=== PATIENT | female | born 1995 | race Caucasian/White ===

== ENCOUNTER 2016-05-22 09:16 | Emergency (ER) | payer OTHER ==
[2016-05-22 10:21] LABS: CONTROL LINE HCG INT CTR LINE PRESENT
--- NOTE | 2016-05-22 11:00 | EDDOCDS ---
Physician Documentation [facility] Name: Kina Gauthier Age: 21 yrs Sex: Female : 1995 Arrival Date: 05/22/2016 Time: 09:16 Bed PR Private MD: HANH Perez Disposition: 05/22/16 10:48 Discharged to Home/Self Care. Impression: Acute cystitis, Acute upper respiratory infection, unspecified. - Condition is Stable. - Discharge Instructions: Upper Respiratory Infection, Adult, Urinary Tract Infection. - Prescriptions for Cipro 250 mg/5 mL Oral Suspension, Microcapsule Recon - take 10 milliliters by ORAL route every 12 hours for 3 days; 60 milliliter. Ibuprofen 600 mg Oral Tablet - take 1 tablet by ORAL route every 6 hours As needed take with food; 30 tablet. Fluticasone 50 mcg/actuation Nasal [place], Suspension - inhale 1 spray by INTRANASAL route 2 times per day; 1 bottle. - Medication Reconciliation, Local Pharmacy Hours, Family Work Release form. - Follow up: Emergency Department; When: As needed; Reason: Fever > 102F, Worsening of conditions. Follow up: HANH Perez; When: Call to arrange an appointment; Reason: To establish care. - Problem is new. - Symptoms are unchanged. Historical: - Allergies: Amoxicillin; SULFA (SULFONAMIDES); Codeine Sulfate; - Home Meds: 1. Flintstones Complete (iron) oral chew daily - PMHx: none; - PSHx: none; - Social history: Smoking status: Patient states was never smoker of tobacco. No barriers to communication noted, The patient speaks fluent Slovak, Speaks appropriately for age. - Family history: Not pertinent. - : The pt / caregiver states he / she is not on anticoagulants. Home medication list is obtained from the patient. - Exposure Risk Screening:: None identified. 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 11 in. (149.86 cm) (R); Pain 7/10; 10:53 BP 134 / 88; Pulse 60; Resp 16; Temp 97.2(O); Pulse Ox 99% on R/A; Pain 6/10; ar3 09:18 Body Mass Index 38.17 (85.73 kg, 149.86 cm) ct3 MDM: 09:48 HCG,Serum Qualitative Ordered. EDMS 09:49 Strep Screen, Nursing ordered. ar2 09:49 Obtain sample by nasopharyngeal swab ordered. ar2 09:50 UA Ordered. EDMS 09:50 Urine Culture Ordered. EDMS 09:50 -Influenza A&B Rapid Antigen - Nose Ordered. EDMS 10:02 GATS (NEGATIVE STREP SCREEN) Ordered. EDMS 10:37 Financial registration complete. lg 10:40 UA Reviewed. ar2 10:40 HCG,Serum Qualitative Reviewed. ar2 10:40 -Influenza A&B Rapid Antigen - Nose Reviewed. ar2 10:53 [facility] Payment Agreement was scanned into [employer] and attached to record. lg Point of Care Testing: Urine : 10:02 hCG Reading: Negative; Control Reading: Positive; kr3 Ranges: Signatures: Dispatcher [employer] EDMS Yas Ravi, Reg Reg lg Shona Brito,RN RN kr3 Tereso Esparza PA-C PA-C ar2 The chart was reviewed and I authenticate all verbal orders and agree with the evaluation and treatment provided.Attachments: 10:53 [facility] Payment Agreement lg MTDD
--- NOTE | 2016-05-22 11:02 | EDDOCDS ---
Nurse's Notes [facility] Name: Kina Gauthier Age: 21 yrs Sex: Female : 1995 Arrival Date: 05/22/2016 Time: 09:16 Bed PR2 / Private MD: HANH Perez Diagnosis: Acute cystitis;Acute upper respiratory infection, unspecified Presentation: 05/22 09:20 Presenting complaint: Patient states: sinus congestion, frequent urination and stomach kr3 cramps. Symptoms for several weeks for sinus congestion. stomach cramps for several days. Risk factors: the patient reports a small or scant amount of vaginal bleeding. Adult Sepsis Screening: The patient does not have new or worsening altered mentation. Patient's respiratory rate is less than 22. Systolic blood pressure is greater than 100. Patient has a qSOFA score of 0- Negative Sepsis Screen. Suicide/Homicide risk assessment- the patient denies having any suicidal and/or homicidal ideations and does not present with any other emotional, behavioral or mental health complaints. Status: Patient is not a inpatient services rn or dependent. Transition of care: patient was not received from another setting of care. 09:20 Acuity: MARIO Level 3 kr3 09:20 Method Of Arrival: Walkin/Carried/Asstd kr3 Triage Assessment: 09:23 General: Appears in no apparent distress, comfortable, Behavior is cooperative. Pain: kr3 Location: right upper quadrant and left upper quadrant Pain currently is 7 out of 10 on a pain scale. Pt Declines HIV testing. Neurological: Level of Consciousness is awake, alert. EENT: Reports nasal congestion. GI: Reports upper abd pain, nausea. : Reports vaginal bleeding that is spotty. : Reports urinary frequency. 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 Flintstones Complete (iron) oral chew daily - PMHx: none; - PSHx: none; - Social history: Smoking status: Patient states was never smoker of tobacco. No barriers to communication noted, The patient speaks fluent [place], Speaks appropriately for age. - Family history: Not pertinent. - : The pt / caregiver states he / she is not on anticoagulants. Home medication list is obtained from the patient. - Exposure Risk Screening:: None identified. Screenin:41 Screening information is obtained from the patient. Fall risk: No risks identified. kr3 Assistance ADL's: requires no assistance with activities of daily living. Abuse/DV Screen: The patient / caregiver reports he/she is: not in a situation that causes fear, pain or injury. Nutritional screening: No deficits noted. Advance Directives: Currently, there is no health care proxy. home support is adequate. Assessment: 10:02 Reassessment: Patient appears in no apparent distress at this time. Neurological: No kr3 deficits noted. Respiratory: Respiratory effort is even, unlabored. GI: Abdomen is obese, deferred to provider Abd is soft and non tender. 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 Vital Signs: 09:18 BP 114 / 81; Pulse 71; Resp 18; Temp 97.3(O); Pulse Ox 100% on R/A; Weight 85.73 kg ct3 (R); Height 4 ft. 11 in. (149.86 cm) (R); Pain 7/10; 10:53 BP 134 / 88; Pulse 60; Resp 16; Temp 97.2(O); Pulse Ox 99% on R/A; Pain 6/10; ar3 09:18 Body Mass Index 38.17 (85.73 kg, 149.86 cm) ct3 Vitals: 09:18 Log In Time: May 22, 2016 at 09:15. ct3 10:02 Strep Screen is obtained and tested: Negative, a GATSNEG culture is ordered in [facility] kr3 and sent. ED Course: 09:18 Patient visited by Rachel Oconnell PCA. ct3 09:18 Chris [facility] [place] [facility] is Private Physician. ct3 09:18 Patient moved to Waiting ct3 09:19 Patient moved to Pre RCE ct3 09:22 Patient moved to Triage 2 srm 09:22 Triage Initiated kr3 09:25 Tereso Esparza PA-C is PHCP. ar2 09:25 Ronni Smith MD is Attending Physician. ar2 09:25 Patient visited by Tereso Esparza PA-C. ar2 10:01 -Influenza A&B Rapid Antigen - Nose Sent. kr3 10:02 Urine Culture Sent. kr3 10:02 UA Sent. kr3 10:02 HCG,Serum Qualitative Sent. kr3 10:03 The patient / caregiver is instructed regarding the plan of care and ED course. kr3 Accompanied by Family Member, Patient has correct armband on for positive identification. 10:03 Patient moved to TR1 kr3 10:03 GATS (NEGATIVE STREP SCREEN) Sent. kr3 10:39 Patient moved to PR1 / srm 10:40 Patient moved to PR srm 10:47 Chris [facility] [place] is Referral Physician. ar2 10:52 Patient name changed from Kina\S\\S\Disha\S\ to Kina\S\Bess\S\Disha. EDMS 10:53 [facility] Payment Agreement was scanned into [email or web address] and attached to record. lg 10:59 No IV's were initiated during this patient's visit. No procedures done that require kr3 assistance. Point of Care Testing: Urine : 10:02 hCG Reading: Negative; Control Reading: Positive; kr3 Ranges: Order Results: Lab Order: HCG,Serum Qualitative; SPEC'M 05/22/16 09:56 Test: HCG, SERUM QUALITATIVE; Value: NEGATIVE; Range: NEGATIVE; Status: F Lab Order: UA; SPEC'M 05/22/16 09:56 Test: APPEARANCE, URINE; Value: HAZY; Range: CLEAR; Status: F Test: COLOR, URINE; Value: YELLOW; Range: YELLOW; Status: F Test: PH,URINE; Value: 6.0; Range: 5.0-9.0; Units: UNITS; Status: F Test: SPECIFIC GRAVITY URINE AUTO; Value: 1.019; Range: 1.002-1.035; Status: F Test: PROTEIN, URINE AUTO; Value: NEGATIVE; Range: NEGATIVE; Units: mg/dL; Status: F Test: GLUCOSE, URINE (UA) AUTO; Value: NEGATIVE; Range: NEGATIVE; Units: mg/dL; Status: F Test: KETONE, URINE AUTO; Value: NEGATIVE; Range: NEGATIVE; Units: mg/dL; Status: F Test: UROBILINOGEN, URINE AUTO; Value: 0.2; Range: 0.0-2.0; Units: mg/dL; Status: F Test: BILIRUBIN, URINE AUTO; Value: NEGATIVE; Range: NEGATIVE; Status: F Test: NITRITE, URINE AUTO; Value: NEGATIVE; Range: NEGATIVE; Status: F Test: LEUKOCYTE ESTERASE, URINE AUTO; Value: 3+; Range: NEGATIVE; Abnormal: Above high normal; Status: F Test: BLOOD, URINE BLOOD; Value: NEGATIVE; Range: NEGATIVE; Status: F Test: WBC, URINE AUTO; Value: 23; Range: 0-3; Abnormal: Above high normal; Units: /HPF; Status: F Test: RBC, URINE AUTO; Value: 3; Range: 0-3; Units: /HPF; Status: F Test: BACTERIA, URINE AUTO; Value: 1+; Range: NEGATIVE; Abnormal: Above high normal; Status: F Test: SQUAMOUS EPITHELIAL CELL UR AU; Value: 9; Range: 0-6; Units: /HPF; Status: F Test: MUCUS, URINE; Value: SMALL; Range: NEGATIVE; Status: F Test: HYALINE CAST, URINE AUTO; Value: 0; Range: 0-1; Units: /LPF; Status: F Lab Order: -Influenza A&B Rapid Antigen - Nose; SPEC'M 05/22/16 09:56 Test: INFLUENZA A RAPID SCR by ICA; Value: INFLUENZA A RESULTS NEGATIVE; Status: F Test: INFLUENZA A RAPID SCR by ICA; Value: Comments:; Status: F Test: INFLUENZA B RAPID SCR by ICA; Value: INFLUENZA B RESULTS NEGATIVE; Status: F Test Note: ; The Influenza test is a direct rapid immunoassay for the qualitative detection of Influenza viral antigen. Cell culture (Viral Culture) testing should be considered to confirm NEGATIVE results and to assist in detecting other viruses that can provide similar clinical symptoms. Please contact the lab within 24 hours ([phone]) if confirmatory testing is desired. Outcome: 10:48 Discharge ordered by Provider. ar2 10:58 Discharge Assessment: patient administered narcotics - no. The following High Risk kr3 Discharge criteria are identified: None. Discharged to home ambulatory, with family. Condition: stable. Discharge instructions given to patient, Instructed on discharge instructions, follow up and referral plans. medication usage, Demonstrated understanding of instructions, medications, Pt was receptive of discharge instructions/ teaching. Prescriptions given X 3. No special radiology studies were completed. Property sent home with patient. 10:59 Patient left the ED. kr3 Signatures: Dispatcher [employer] EDMS Radha Toscano, RN RN srm Yas Ravi, Reg Reg lg Shona Brito,RN RN kr3 Tereso Esparza, BALA PAJose ar2 Alana Wilson, INCOME TAX EXPERT INCOME TAX EXPERT ar3 Anish, Rachel, INCOME TAX EXPERT INCOME TAX EXPERT ct3 MTDD
--- NOTE | 2016-05-24 12:01 | EDDOCDS ---
Nurse's Notes [facility] Name: Kina Gauthier Age: 21 yrs Sex: Female : 1995 Arrival Date: 05/22/2016 Time: 09:16 Bed PR2 / Private MD: HANH Perez Diagnosis: Acute cystitis;Acute upper respiratory infection, unspecified Presentation: 05/22 09:20 Presenting complaint: Patient states: sinus congestion, frequent urination and stomach kr3 cramps. Symptoms for several weeks for sinus congestion. stomach cramps for several days. Risk factors: the patient reports a small or scant amount of vaginal bleeding. Adult Sepsis Screening: The patient does not have new or worsening altered mentation. Patient's respiratory rate is less than 22. Systolic blood pressure is greater than 100. Patient has a qSOFA score of 0- Negative Sepsis Screen. Suicide/Homicide risk assessment- the patient denies having any suicidal and/or homicidal ideations and does not present with any other emotional, behavioral or mental health complaints. Status: Patient is not a career services representative or dependent. Transition of care: patient was not received from another setting of care. 09:20 Acuity: MARIO Level 3 kr3 09:20 Method Of Arrival: Walkin/Carried/Asstd kr3 Triage Assessment: 09:23 General: Appears in no apparent distress, comfortable, Behavior is cooperative. Pain: kr3 Location: right upper quadrant and left upper quadrant Pain currently is 7 out of 10 on a pain scale. Pt Declines HIV testing. Neurological: Level of Consciousness is awake, alert. EENT: Reports nasal congestion. GI: Reports upper abd pain, nausea. : Reports vaginal bleeding that is spotty. : Reports urinary frequency. 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 Flintstones Complete (iron) oral chew daily - PMHx: none; - PSHx: none; - Social history: Smoking status: Patient states was never smoker of tobacco. No barriers to communication noted, The patient speaks fluent Nigerien, Speaks appropriately for age. - Family history: Not pertinent. - : The pt / caregiver states he / she is not on anticoagulants. Home medication list is obtained from the patient. - Exposure Risk Screening:: None identified. Screenin:41 Screening information is obtained from the patient. Fall risk: No risks identified. kr3 Assistance ADL's: requires no assistance with activities of daily living. Abuse/DV Screen: The patient / caregiver reports he/she is: not in a situation that causes fear, pain or injury. Nutritional screening: No deficits noted. Advance Directives: Currently, there is no health care proxy. home support is adequate. Assessment: 10:02 Reassessment: Patient appears in no apparent distress at this time. Neurological: No kr3 deficits noted. Respiratory: Respiratory effort is even, unlabored. GI: Abdomen is obese, deferred to provider Abd is soft and non tender. 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 Vital Signs: 09:18 BP 114 / 81; Pulse 71; Resp 18; Temp 97.3(O); Pulse Ox 100% on R/A; Weight 85.73 kg ct3 (R); Height 4 ft. 11 in. (149.86 cm) (R); Pain 7/10; 10:53 BP 134 / 88; Pulse 60; Resp 16; Temp 97.2(O); Pulse Ox 99% on R/A; Pain 6/10; ar3 09:18 Body Mass Index 38.17 (85.73 kg, 149.86 cm) ct3 Vitals: 09:18 Log In Time: May 22, 2016 at 09:15. ct3 10:02 Strep Screen is obtained and tested: Negative, a GATSNEG culture is ordered in [facility] kr3 and sent. ED Course: 09:18 Patient visited by Rachel Oconnell PCA. ct3 09:18 Chris [facility] is Private Physician. ct3 09:18 Patient moved to Waiting ct3 09:19 Patient moved to Pre RCE ct3 09:22 Patient moved to Triage 2 srm 09:22 Triage Initiated kr3 09:25 Tereso Esparza PA-C is PHCP. ar2 09:25 Ronni Smith MD is Attending Physician. ar2 09:25 Patient visited by Tereso Esparza PA-C. ar2 10:01 -Influenza A&B Rapid Antigen - Nose Sent. kr3 10:02 Urine Culture Sent. kr3 10:02 UA Sent. kr3 10:02 HCG,Serum Qualitative Sent. kr3 10:03 The patient / caregiver is instructed regarding the plan of care and ED course. kr3 Accompanied by Family Member, Patient has correct armband on for positive identification. 10:03 Patient moved to TR1 kr3 10:03 GATS (NEGATIVE STREP SCREEN) Sent. kr3 10:39 Patient moved to PR1 / srm 10:40 Patient moved to PR srm 10:47 Chris [facility] is Referral Physician. ar2 10:52 Patient name changed from Kina\S\\S\Disha\S\ to Kina\S\Bess\S\Disha. EDMS 10:53 [facility] Payment Agreement was scanned into [employer] and attached to record. lg 10:59 No IV's were initiated during this patient's visit. No procedures done that require kr3 assistance. 05/23 14:17 T-Sheet-- Draft Copy was scanned into [employer] and attached to record. gb Point of Care Testing: Urine : 05/22 10:02 hCG Reading: Negative; Control Reading: Positive; kr3 Ranges: Order Results: Lab Order: HCG,Serum Qualitative; SPEC'M 05/22/16 09:56 Test: HCG, SERUM QUALITATIVE; Value: NEGATIVE; Range: NEGATIVE; Status: F Lab Order: UA; SPEC'M 05/22/16 09:56 Test: APPEARANCE, URINE; Value: HAZY; Range: CLEAR; Status: F Test: COLOR, URINE; Value: YELLOW; Range: YELLOW; Status: F Test: PH,URINE; Value: 6.0; Range: 5.0-9.0; Units: UNITS; Status: F Test: SPECIFIC GRAVITY URINE AUTO; Value: 1.019; Range: 1.002-1.035; Status: F Test: PROTEIN, URINE AUTO; Value: NEGATIVE; Range: NEGATIVE; Units: mg/dL; Status: F Test: GLUCOSE, URINE (UA) AUTO; Value: NEGATIVE; Range: NEGATIVE; Units: mg/dL; Status: F Test: KETONE, URINE AUTO; Value: NEGATIVE; Range: NEGATIVE; Units: mg/dL; Status: F Test: UROBILINOGEN, URINE AUTO; Value: 0.2; Range: 0.0-2.0; Units: mg/dL; Status: F Test: BILIRUBIN, URINE AUTO; Value: NEGATIVE; Range: NEGATIVE; Status: F Test: NITRITE, URINE AUTO; Value: NEGATIVE; Range: NEGATIVE; Status: F Test: LEUKOCYTE ESTERASE, URINE AUTO; Value: 3+; Range: NEGATIVE; Abnormal: Above high normal; Status: F Test: BLOOD, URINE BLOOD; Value: NEGATIVE; Range: NEGATIVE; Status: F Test: WBC, URINE AUTO; Value: 23; Range: 0-3; Abnormal: Above high normal; Units: /HPF; Status: F Test: RBC, URINE AUTO; Value: 3; Range: 0-3; Units: /HPF; Status: F Test: BACTERIA, URINE AUTO; Value: 1+; Range: NEGATIVE; Abnormal: Above high normal; Status: F Test: SQUAMOUS EPITHELIAL CELL UR AU; Value: 9; Range: 0-6; Units: /HPF; Status: F Test: MUCUS, URINE; Value: SMALL; Range: NEGATIVE; Status: F Test: HYALINE CAST, URINE AUTO; Value: 0; Range: 0-1; Units: /LPF; Status: F Lab Order: Urine Culture; SPEC'M 05/22/16 09:56 Test: URINE CULTURE; Value: <EXTERNAL COMMENT eCWMed> FULL REPORT IN LAB NOTES (eCW and Medent).; Status: F Test: URINE CULTURE; Value: URINE CULTURE RESULT SPECIMEN APPEARS CONTAMINATED; Status: F Lab Order: -Influenza A&B Rapid Antigen - Nose; SPEC'M 05/22/16 09:56 Test: INFLUENZA A RAPID SCR by ICA; Value: INFLUENZA A RESULTS NEGATIVE; Status: F Test: INFLUENZA A RAPID SCR by ICA; Value: Comments:; Status: F Test: INFLUENZA B RAPID SCR by ICA; Value: INFLUENZA B RESULTS NEGATIVE; Status: F Test Note: ; The Influenza test is a direct rapid immunoassay for the qualitative detection of Influenza viral antigen. Cell culture (Viral Culture) testing should be considered to confirm NEGATIVE results and to assist in detecting other viruses that can provide similar clinical symptoms. Please contact the lab within 24 hours ([phone]) if confirmatory testing is desired. Lab Order: GATS (NEGATIVE STREP SCREEN); SPEC'M 05/22/16 09:56 Test: GATS CULTURE (NEG STREP SCR); Value: GATS RESULT NEGATIVE FOR STREP PYOGENES (GROUP A); Status: F Test: GATS CULTURE (NEG STREP SCR); Value: <EXTERNAL COMMENT eCWMed> FULL REPORT IN LAB NOTES (eCW and Medent).; Status: F Outcome: 10:48 Discharge ordered by Provider. ar2 10:58 Discharge Assessment: patient administered narcotics - no. The following High Risk kr3 Discharge criteria are identified: None. Discharged to home ambulatory, with family. Condition: stable. Discharge instructions given to patient, Instructed on discharge instructions, follow up and referral plans. medication usage, Demonstrated understanding of instructions, medications, Pt was receptive of discharge instructions/ teaching. Prescriptions given X 3. No special radiology studies were completed. Property sent home with patient. 10:59 Patient left the ED. kr3 Signatures: Dispatcher [employer] EDMS Radha Toscano, RN RN srm Arianna Banda, Reg Reg gb Yas Ravi, Reg Reg lg Shona Brito RN RN kr3 Tereso Esparza PA-C PA-C ar2 Alana Wilson, INSPECTOR MACHINED PARTS INSPECTOR MACHINED PARTS ar3 Rachel Oconnell, INSPECTOR MACHINED PARTS INSPECTOR MACHINED PARTS ct3 Chart Complete MTDD
--- NOTE | 2016-05-24 12:01 | EDDOCDS ---
Physician Documentation [facility] Name: Kina Gauthier Age: 21 yrs Sex: Female : 1995 Arrival Date: 05/22/2016 Time: 09:16 Bed PR Private MD: HANH Perez Disposition: 05/22/16 10:48 Discharged to Home/Self Care. Impression: Acute cystitis, Acute upper respiratory infection, unspecified. - Condition is Stable. - Discharge Instructions: Upper Respiratory Infection, Adult, Urinary Tract Infection. - Prescriptions for Cipro 250 mg/5 mL Oral Suspension, Microcapsule Recon - take 10 milliliters by ORAL route every 12 hours for 3 days; 60 milliliter. Ibuprofen 600 mg Oral Tablet - take 1 tablet by ORAL route every 6 hours As needed take with food; 30 tablet. Fluticasone 50 mcg/actuation Nasal [place], Suspension - inhale 1 spray by INTRANASAL route 2 times per day; 1 bottle. - Medication Reconciliation, Local Pharmacy Hours, Family Work Release form. - Follow up: Emergency Department; When: As needed; Reason: Fever > 102F, Worsening of conditions. Follow up: HANH Perez; When: Call to arrange an appointment; Reason: To establish care. - Problem is new. - Symptoms are unchanged. Historical: - Allergies: Amoxicillin; SULFA (SULFONAMIDES); Codeine Sulfate; - Home Meds: 1. Flintstones Complete (iron) oral chew daily - PMHx: none; - PSHx: none; - Social history: Smoking status: Patient states was never smoker of tobacco. No barriers to communication noted, The patient speaks fluent Peruvian, Speaks appropriately for age. - Family history: Not pertinent. - : The pt / caregiver states he / she is not on anticoagulants. Home medication list is obtained from the patient. - Exposure Risk Screening:: None identified. 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 11 in. (149.86 cm) (R); Pain 7/10; 10:53 BP 134 / 88; Pulse 60; Resp 16; Temp 97.2(O); Pulse Ox 99% on R/A; Pain 6/10; ar3 09:18 Body Mass Index 38.17 (85.73 kg, 149.86 cm) ct3 MDM: 09:48 HCG,Serum Qualitative Ordered. EDMS 09:49 Strep Screen, Nursing ordered. ar2 09:49 Obtain sample by nasopharyngeal swab ordered. ar2 09:50 UA Ordered. EDMS 09:50 Urine Culture Ordered. EDMS 09:50 -Influenza A&B Rapid Antigen - Nose Ordered. EDMS 10:02 GATS (NEGATIVE STREP SCREEN) Ordered. EDMS 10:37 Financial registration complete. lg 10:40 UA Reviewed. ar2 10:40 HCG,Serum Qualitative Reviewed. ar2 10:40 -Influenza A&B Rapid Antigen - Nose Reviewed. ar2 10:53 [facility] Payment Agreement was scanned into [employer] and attached to record. lg 05/23 14:17 T-Sheet-- Draft Copy was scanned into [employer] and attached to record. gb Point of Care Testing: Urine : 05/22 10:02 hCG Reading: Negative; Control Reading: Positive; kr3 Ranges: Signatures: Dispatcher [employer] EDArianna Mcdonnell, Reg Reg gb Yas Ravi, Reg Reg lg Shona Brito,RN RN kr3 Tereso Esparza, BALA PAJose ar2 The chart was reviewed and I authenticate all verbal orders and agree with the evaluation and treatment provided.Attachments: 10:53 [facility] Payment Agreement lg 05/23 14:17 T-Sheet-- Draft Copy gb Chart Complete MTDD
--- NOTE | 2016-05-24 12:01 | EDDOCDS ---
Physician Documentation Name: Kina Gauthier Age: 21 yrs Sex: Female : 1995 Arrival Date: 05/22/2016 Time: 09:16 Bed PR Private MD: HANH Perez Disposition: 05/22/16 10:48 Discharged to Home/Self Care. Impression: Acute cystitis, Acute upper respiratory infection, unspecified. - Condition is Stable. - Discharge Instructions: Upper Respiratory Infection, Adult, Urinary Tract Infection. - Prescriptions for Cipro 250 mg/5 mL Oral Suspension, Microcapsule Recon - take 10 milliliters by ORAL route every 12 hours for 3 days; 60 milliliter. Ibuprofen 600 mg Oral Tablet - take 1 tablet by ORAL route every 6 hours As needed take with food; 30 tablet. Fluticasone 50 mcg/actuation Nasal [place], Suspension - inhale 1 spray by INTRANASAL route 2 times per day; 1 bottle. - Medication Reconciliation, Local Pharmacy Hours, Family Work Release form. - Follow up: Emergency Department; When: As needed; Reason: Fever > 102F, Worsening of conditions. Follow up: HNAH Perez; When: Call to arrange an appointment; Reason: To establish care. - Problem is new. - Symptoms are unchanged. Historical: - Allergies: Amoxicillin; SULFA (SULFONAMIDES); Codeine Sulfate; - Home Meds: 1. Flintstones Complete (iron) oral chew daily - PMHx: none; - PSHx: none; - Social history: Smoking status: Patient states was never smoker of tobacco. No barriers to communication noted, The patient speaks fluent Ivorian, Speaks appropriately for age. - Family history: Not pertinent. - : The pt / caregiver states he / she is not on anticoagulants. Home medication list is obtained from the patient. - Exposure Risk Screening:: None identified. 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 11 in. (149.86 cm) (R); Pain 7/10; 10:53 BP 134 / 88; Pulse 60; Resp 16; Temp 97.2(O); Pulse Ox 99% on R/A; Pain 6/10; ar3 09:18 Body Mass Index 38.17 (85.73 kg, 149.86 cm) ct3 MDM: 09:48 HCG,Serum Qualitative Ordered. EDMS 09:49 Strep Screen, Nursing ordered. ar2 09:49 Obtain sample by nasopharyngeal swab ordered. ar2 09:50 UA Ordered. EDMS 09:50 Urine Culture Ordered. EDMS 09:50 -Influenza A&B Rapid Antigen - Nose Ordered. EDMS 10:02 GATS (NEGATIVE STREP SCREEN) Ordered. EDMS 10:37 Financial registration complete. lg 10:40 UA Reviewed. ar2 10:40 HCG,Serum Qualitative Reviewed. ar2 10:40 -Influenza A&B Rapid Antigen - Nose Reviewed. ar2 10:53 [facility] Payment Agreement was scanned into [employer] and attached to record. lg 05/23 14:17 T-Sheet-- Draft Copy was scanned into [employer] and attached to record. gb Point of Care Testing: Urine : 05/22 10:02 hCG Reading: Negative; Control Reading: Positive; kr3 Ranges: Signatures: Dispatcher MedHost EDArianna Mcdonnell, Reg Reg gb Yas Ravi, Reg Reg lg Shona Brito,RN RN kr3 Tereso Esparza, BALA PAJose ar2 The chart was reviewed and I authenticate all verbal orders and agree with the evaluation and treatment provided.Attachments: 10:53 [facility] Payment Agreement lg 05/23 14:17 T-Sheet-- Draft Copy gb Chart Complete MTDD
== END 2016-05-22 10:59 | disposition home or self-care (01) ==
LOC: M ED 09:16
DX: N30.00 Acute cystitis without hematuria (principal); J06.9 Acute upper respiratory infection, unspecified; Z88.0 Allergy status to penicillin; Z88.2 Allergy status to sulfonamides; Z88.5 Allergy status to narcotic agent

== ENCOUNTER 2016-05-29 12:03 | Emergency (ER) | payer OTHER ==
--- NOTE | 2016-05-29 14:49 | EDDOCDS ---
Nurse's Notes [facility] Name: Kina Gauthier Age: 21 yrs Sex: Female : 1995 Arrival Date: 05/29/2016 Time: 12:03 Bed Triage 1 Private MD: Emma Cox E Diagnosis: Urinary tract infection, site not specified Presentation: 05/29 12:12 Presenting complaint: Patient states: she has had abdominal cramping, sore throat , kcs cough and stuffy nose for 2 days. Adult Sepsis Screening: The patient does not have new or worsening altered mentation. Patient's respiratory rate is less than 22. Systolic blood pressure is greater than 100. Patient has a qSOFA score of 0- Negative Sepsis Screen. Suicide/Homicide risk assessment- the patient denies having any suicidal and/or homicidal ideations and does not present with any other emotional, behavioral or mental health complaints. Status: The patient is a dependent. Transition of care: patient was not received from another setting of care. 12:12 Acuity: MARIO Level 4 kcs 12:12 Method Of Arrival: Walkin/Carried/Asstd kcs 14:48 Risk factors: the patient reports no vaginal bleeding. ms18 Triage Assessment: 12:14 General: Appears comfortable, well developed, well nourished, well groomed, Behavior is kcs cooperative, pleasant. Pain: Location: upper abdomen Pain currently is 6 out of 10 on a pain scale. HIV screening NA for this visit Offered previously. Neurological: Level of Consciousness is awake, alert. Respiratory: Airway is patent Respiratory effort is even, unlabored, Respiratory pattern is regular, symmetrical. Derm: Skin is intact, is healthy with good turgor, Skin is dry, Skin is normal. 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 none - PMHx: Asthma; environmental allergies; - PSHx: none; - Social history: Smoking status: Patient states former smoker of tobacco. No barriers to communication noted, The patient speaks fluent Sinhala. - Family history: Not pertinent. - : The pt / caregiver states he / she is not on anticoagulants. Home medication list is obtained from the patient, [employer] import data. - Exposure Risk Screening:: None identified. Screenin:46 Screening information is obtained from the patient. Fall risk: No risks identified. ms18 Assistance ADL's: requires no assistance with activities of daily living. Abuse/DV Screen: The patient / caregiver reports he/she is: not in a situation that causes fear, pain or injury. Nutritional screening: No deficits noted. Advance Directives: There is no living will. home support is adequate. Assessment: 14:17 General: Appears in no apparent distress, comfortable, obese, Behavior is appropriate ms18 for age, cooperative. Neurological: No deficits noted. Respiratory: No deficits noted. Airway is patent Respiratory effort is even, unlabored, Respiratory pattern is regular, symmetrical. GI: Abdomen is non- distended obese. : Urine is clear. Derm: Skin is pink, warm & dry. 14:46 General: Appears in no apparent distress, comfortable, obese, Behavior is appropriate ms18 for age, cooperative. Pain: Location: suprapubic area. Neurological: No deficits noted. Respiratory: No deficits noted. GI: Bowel sounds present X 4 quads. Abd is soft and non tender X 4 quads. Derm: Skin is pink, warm & dry. Vital Signs: 12:05 BP 120 / 70; Pulse 72; Resp 18 S; Temp 97.9(O); Pulse Ox 99% on R/A; Weight 86.18 kg gr2 (R); Height 4 ft. 11 in. (149.86 cm) (R); Pain 5/10; 14:46 BP 116 / 86; Pulse 66; Resp 18; Temp 97.8; Pulse Ox 98% ; ms18 12:05 Body Mass Index 38.37 (86.18 kg, 149.86 cm) gr2 Vitals: 12:05 Log In Time: May 29, 2016 at 12:05. gr2 14:16 Strep Screen is obtained and tested: Negative, a GATSNEG culture is ordered in [facility] ms18 and sent. ED Course: 12:04 Patient visited by Fredrick May. gr2 12:04 Emma Cox is Private Physician. gr2 12:04 Patient moved to Waiting gr2 12:06 Patient visited by Fredrick May. gr2 12:06 Patient moved to Pre RCE gr2 12:13 Triage Initiated kcs 13:16 Patient moved to Triage 1 ms18 14:01 Gillian Almaguer [facility]-C is [facility]. dt4 14:01 Olga Chavez MD is Attending Physician. dt4 14:01 Patient visited by Gillian Almaguer PA-C. dt4 14:17 Patient visited by Radha Jacobson RN. ms18 14:18 GATS (NEGATIVE STREP SCREEN) Sent. ms18 14:46 The patient / caregiver is instructed regarding the plan of care and ED course. ms18 Accompanied by Significant Other, Patient has correct armband on for positive identification. Property sent home with patient. :Personal belongings accompany Pt. 14:46 No IV's were initiated during this patient's visit. No procedures done that require ms18 assistance. 14:48 [facility] Payment Agreement was scanned into [employer] and attached to record. ks16 Point of Care Testing: Urine : 14:16 hCG Reading: Negative; Control Reading: Positive; ms18 Urine Dip: 14:16 pH: 6; ; Specific [place]: 1.020; Ketones: Negative; Glucose: Negative; Protein: ms18 Negative; Leukocytes: Positive (+); Nitrite: Positive (+) ; Blood: Negative; Bilirubin: Negative ; Urobilinogen: Normal Ranges: Order Results: There are currently no results for this order. Outcome: 14:22 Discharge ordered by Provider. dt4 14:46 Discharge Assessment: Patient awake, alert and oriented x 3. No cognitive and/or ms18 functional deficits noted. Patient verbalized understanding of disposition instructions. patient administered narcotics - no. The following High Risk Discharge criteria are identified: None. Discharged to home ambulatory. Condition: good Condition: stable. Discharge instructions given to patient, Instructed on Demonstrated understanding of instructions, medications, Pt was receptive of discharge instructions/ teaching. Prescriptions given X 1. No special radiology studies were completed. 14:48 Patient left the ED. ms18 Signatures: Ana Mosquera RN RN Fredrick Bustamante gr2 Gillian Almaguer PA-C PA-C dt4 Radha Jacobson RN RN ms18 Nory Evangelista, Reg Reg ks16 MTDD
--- NOTE | 2016-05-29 14:49 | EDDOCDS ---
Physician Documentation [facility] Name: Kina Gauthier Age: 21 yrs Sex: Female : 1995 Arrival Date: 05/29/2016 Time: 12:03 Bed Triage 1 Private MD: Emma Cox E Disposition: 05/29/16 14:22 Discharged to Home/Self Care. Impression: Urinary tract infection, site not specified. - Condition is Stable. - Discharge Instructions: Urinary Tract Infection. - Prescriptions for Cipro 500 mg/5 mL Oral Suspension, Microcapsule Recon - take 5 milliliter by ORAL route every 12 hours for 5 days; 60 milliliter. - Medication Reconciliation, Local Pharmacy Hours, Family Work Release form. - Follow up: Emergency Department; When: As needed; Reason: Worsening of conditions. Follow up: Private Physician; When: 2 - 3 days; Reason: Wound/Symptom Recheck, Recheck today's complaints, Continuance of care. - Problem is new. - Symptoms are unchanged. - Notes: YOUR URINE WAS POSITIVE FOR INFECTION TODAY. PLEASE TAKE THE MEDICATION DIRECTED UNTIL IT IS GONE. FOLLOW UP WITH YOUR PRIMARY CARE PROVIDER IN THE NEXT FEW DAYS TO RECHECK YOUR SYMPTOMS. Historical: - Allergies: Amoxicillin; Codeine Sulfate; SULFA (SULFONAMIDES); - Home Meds: 1. none - PMHx: Asthma; environmental allergies; - PSHx: none; - Social history: Smoking status: Patient states former smoker of tobacco. No barriers to communication noted, The patient speaks fluent Welsh. - Family history: Not pertinent. - : The pt / caregiver states he / she is not on anticoagulants. Home medication list is obtained from the patient, [employer] import data. - Exposure Risk Screening:: None identified. 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 11 in. (149.86 cm) (R); Pain 5/10; 14:46 BP 116 / 86; Pulse 66; Resp 18; Temp 97.8; Pulse Ox 98% ; ms18 12:05 Body Mass Index 38.37 (86.18 kg, 149.86 cm) gr2 MDM: 14:01 UCG by Nursing ordered. dt4 14:01 Urine Dip ordered. dt4 14:01 Strep Screen, Nursing ordered. dt4 14:16 GATS (NEGATIVE STREP SCREEN) Ordered. EDMS 14:24 Urine Culture Ordered. EDMS 14:46 Financial registration complete. ks16 14:48 [facility] Payment Agreement was scanned into [employer] and attached to record. ks16 Point of Care Testing: Urine : 14:16 hCG Reading: Negative; Control Reading: Positive; ms18 Urine Dip: 14:16 pH: 6; ; Specific [place]: 1.020; Ketones: Negative; Glucose: Negative; Protein: ms18 Negative; Leukocytes: Positive (+); Nitrite: Positive (+) ; Blood: Negative; Bilirubin: Negative ; Urobilinogen: Normal Ranges: Signatures: Dispatcher MedHo Ana March RN RN kcs Gillian Almaguer PA-C [place] dt4 Radha Jacobson RN RN ms18 Nory Evangelista, Reg Reg ks16 The chart was reviewed and I authenticate all verbal orders and agree with the evaluation and treatment provided.Attachments: 14:48 [facility] Payment Agreement ks16 MTDD
--- NOTE | 2016-05-31 15:49 | EDDOCDS ---
Nurse's Notes [facility] Name: Kina Gauthier Age: 21 yrs Sex: Female : 1995 Arrival Date: 05/29/2016 Time: 12:03 Bed Triage 1 Private MD: Emma Cox E Diagnosis: Urinary tract infection, site not specified Presentation: 05/29 12:12 Presenting complaint: Patient states: she has had abdominal cramping, sore throat , kcs cough and stuffy nose for 2 days. Adult Sepsis Screening: The patient does not have new or worsening altered mentation. Patient's respiratory rate is less than 22. Systolic blood pressure is greater than 100. Patient has a qSOFA score of 0- Negative Sepsis Screen. Suicide/Homicide risk assessment- the patient denies having any suicidal and/or homicidal ideations and does not present with any other emotional, behavioral or mental health complaints. Status: The patient is a dependent. Transition of care: patient was not received from another setting of care. 12:12 Acuity: MARIO Level 4 kcs 12:12 Method Of Arrival: Walkin/Carried/Asstd kcs 14:48 Risk factors: the patient reports no vaginal bleeding. ms18 Triage Assessment: 12:14 General: Appears comfortable, well developed, well nourished, well groomed, Behavior is kcs cooperative, pleasant. Pain: Location: upper abdomen Pain currently is 6 out of 10 on a pain scale. HIV screening NA for this visit Offered previously. Neurological: Level of Consciousness is awake, alert. Respiratory: Airway is patent Respiratory effort is even, unlabored, Respiratory pattern is regular, symmetrical. Derm: Skin is intact, is healthy with good turgor, Skin is dry, Skin is normal. 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 none - PMHx: Asthma; environmental allergies; - PSHx: none; - Social history: Smoking status: Patient states former smoker of tobacco. No barriers to communication noted, The patient speaks fluent Polish. - Family history: Not pertinent. - : The pt / caregiver states he / she is not on anticoagulants. Home medication list is obtained from the patient, [employer] import data. - Exposure Risk Screening:: None identified. Screenin:46 Screening information is obtained from the patient. Fall risk: No risks identified. ms18 Assistance ADL's: requires no assistance with activities of daily living. Abuse/DV Screen: The patient / caregiver reports he/she is: not in a situation that causes fear, pain or injury. Nutritional screening: No deficits noted. Advance Directives: There is no living will. home support is adequate. Assessment: 14:17 General: Appears in no apparent distress, comfortable, obese, Behavior is appropriate ms18 for age, cooperative. Neurological: No deficits noted. Respiratory: No deficits noted. Airway is patent Respiratory effort is even, unlabored, Respiratory pattern is regular, symmetrical. GI: Abdomen is non- distended obese. : Urine is clear. Derm: Skin is pink, warm & dry. 14:46 General: Appears in no apparent distress, comfortable, obese, Behavior is appropriate ms18 for age, cooperative. Pain: Location: suprapubic area. Neurological: No deficits noted. Respiratory: No deficits noted. GI: Bowel sounds present X 4 quads. Abd is soft and non tender X 4 quads. Derm: Skin is pink, warm & dry. Vital Signs: 12:05 BP 120 / 70; Pulse 72; Resp 18 S; Temp 97.9(O); Pulse Ox 99% on R/A; Weight 86.18 kg gr2 (R); Height 4 ft. 11 in. (149.86 cm) (R); Pain 5/10; 14:46 BP 116 / 86; Pulse 66; Resp 18; Temp 97.8; Pulse Ox 98% ; ms18 12:05 Body Mass Index 38.37 (86.18 kg, 149.86 cm) gr2 Vitals: 12:05 Log In Time: May 29, 2016 at 12:05. gr2 14:16 Strep Screen is obtained and tested: Negative, a GATSNEG culture is ordered in [facility] ms18 and sent. ED Course: 12:04 Patient visited by Fredrick May. gr2 12:04 Emma Cox is Private Physician. gr2 12:04 Patient moved to Waiting gr2 12:06 Patient visited by Fredrick May. gr2 12:06 Patient moved to Pre RCE gr2 12:13 Triage Initiated kcs 13:16 Patient moved to Triage 1 ms18 14:01 Gillian Almaguer PA-C [facility]. dt4 14:01 Olga Chavez MD is Attending Physician. dt4 14:01 Patient visited by Gillian Almaguer PA-C. dt4 14:17 Patient visited by Radha Jacobson RN. ms18 14:18 GATS (NEGATIVE STREP SCREEN) Sent. ms18 14:46 The patient / caregiver is instructed regarding the plan of care and ED course. ms18 Accompanied by Significant Other, Patient has correct armband on for positive identification. Property sent home with patient. :Personal belongings accompany Pt. 14:46 No IV's were initiated during this patient's visit. No procedures done that require ms18 assistance. 14:48 [facility] Payment Agreement was scanned into [employer] and attached to record. ks16 05/30 14:20 T-Sheet-- Draft Copy was scanned into [employer] and attached to record. Point of Care Testing: Urine : 05/29 14:16 hCG Reading: Negative; Control Reading: Positive; ms18 Urine Dip: 14:16 pH: 6; ; Specific [place]: 1.020; Ketones: Negative; Glucose: Negative; Protein: ms18 Negative; Leukocytes: Positive (+); Nitrite: Positive (+) ; Blood: Negative; Bilirubin: Negative ; Urobilinogen: Normal Ranges: Order Results: Lab Order: GATS (NEGATIVE STREP SCREEN); SPEC'M 05/29/16 14:08 Test: GATS CULTURE (NEG STREP SCR); Value: GATS RESULT NEGATIVE FOR STREP PYOGENES (GROUP A); Status: F Test: GATS CULTURE (NEG STREP SCR); Value: <EXTERNAL COMMENT eCWMed> FULL REPORT IN LAB NOTES (eCW and Medent).; Status: F Lab Order: Urine Culture; SPEC'M 05/29/16 14:08 Test: URINE CULTURE; Value: <EXTERNAL COMMENT eCWMed> FULL REPORT IN LAB NOTES (eCW and Medent).; Status: F Test: URINE CULTURE; Value: URINE CULTURE RESULT NO GROWTH; Status: F Outcome: 14:22 Discharge ordered by Provider. dt4 14:46 Discharge Assessment: Patient awake, alert and oriented x 3. No cognitive and/or ms18 functional deficits noted. Patient verbalized understanding of disposition instructions. patient administered narcotics - no. The following High Risk Discharge criteria are identified: None. Discharged to home ambulatory. Condition: good Condition: stable. Discharge instructions given to patient, Instructed on Demonstrated understanding of instructions, medications, Pt was receptive of discharge instructions/ teaching. Prescriptions given X 1. No special radiology studies were completed. 14:48 Patient left the ED. ms18 Signatures: Ana Mosquera, RN RN kcs Arianna Banda, Reg Reg gb Fredrick May gr2 Gillian Almaguer PA-C PA-C dt4 Radha Jacobson RN RN ms18 Nory Evangelista, Reg Reg ks16 Chart Complete MTDD
--- NOTE | 2016-05-31 15:49 | EDDOCDS ---
Physician Documentation [facility] Name: Kina Gauthier Age: 21 yrs Sex: Female : 1995 Arrival Date: 05/29/2016 Time: 12:03 Bed Triage 1 Private MD: Emma Cox E Disposition: 05/29/16 14:22 Discharged to Home/Self Care. Impression: Urinary tract infection, site not specified. - Condition is Stable. - Discharge Instructions: Urinary Tract Infection. - Prescriptions for Cipro 500 mg/5 mL Oral Suspension, Microcapsule Recon - take 5 milliliter by ORAL route every 12 hours for 5 days; 60 milliliter. - Medication Reconciliation, Local Pharmacy Hours, Family Work Release form. - Follow up: Emergency Department; When: As needed; Reason: Worsening of conditions. Follow up: Private Physician; When: 2 - 3 days; Reason: Wound/Symptom Recheck, Recheck today's complaints, Continuance of care. - Problem is new. - Symptoms are unchanged. - Notes: YOUR URINE WAS POSITIVE FOR INFECTION TODAY. PLEASE TAKE THE MEDICATION DIRECTED UNTIL IT IS GONE. FOLLOW UP WITH YOUR PRIMARY CARE PROVIDER IN THE NEXT FEW DAYS TO RECHECK YOUR SYMPTOMS. Historical: - Allergies: Amoxicillin; Codeine Sulfate; SULFA (SULFONAMIDES); - Home Meds: 1. none - PMHx: Asthma; environmental allergies; - PSHx: none; - Social history: Smoking status: Patient states former smoker of tobacco. No barriers to communication noted, The patient speaks fluent Georgian. - Family history: Not pertinent. - : The pt / caregiver states he / she is not on anticoagulants. Home medication list is obtained from the patient, [employer] import data. - Exposure Risk Screening:: None identified. 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 11 in. (149.86 cm) (R); Pain 5/10; 14:46 BP 116 / 86; Pulse 66; Resp 18; Temp 97.8; Pulse Ox 98% ; ms18 12:05 Body Mass Index 38.37 (86.18 kg, 149.86 cm) gr2 MDM: 14:01 UCG by Nursing ordered. dt4 14:01 Urine Dip ordered. dt4 14:01 Strep Screen, Nursing ordered. dt4 14:16 GATS (NEGATIVE STREP SCREEN) Ordered. EDMS 14:24 Urine Culture Ordered. EDMS 14:46 Financial registration complete. [email or web address] 14:48 [facility] Payment Agreement was scanned into [employer] and attached to record. 05/30 14:20 T-Sheet-- Draft Copy was scanned into [employer] and attached to record. gb Point of Care Testing: Urine : 05/29 14:16 hCG Reading: Negative; Control Reading: Positive; ms18 Urine Dip: 14:16 pH: 6; ; Specific [place]: 1.020; Ketones: Negative; Glucose: Negative; Protein: ms18 Negative; Leukocytes: Positive (+); Nitrite: Positive (+) ; Blood: Negative; Bilirubin: Negative ; Urobilinogen: Normal Ranges: Signatures: Dispatcher MedHo Ana March RN RN [facility] Arianna Banda, Reg Reg gb Gillian Almaguer PA-C PA-C dt4 Radha Jacobson RN RN ms18 Nory Evangelista, Reg Reg ks16 The chart was reviewed and I authenticate all verbal orders and agree with the evaluation and treatment provided.Attachments: 14:48 [facility] Payment Agreement 05/30 14:20 T-Sheet-- Draft Copy gb Chart Complete MTDD
--- NOTE | 2016-05-31 15:49 | EDDOCDS ---
Physician Documentation [facility] Name: Kina Gauthier Age: 21 yrs Sex: Female : 1995 Arrival Date: 05/29/2016 Time: 12:03 Bed Triage 1 Private MD: Emma Cox E Disposition: 05/29/16 14:22 Discharged to Home/Self Care. Impression: Urinary tract infection, site not specified. - Condition is Stable. - Discharge Instructions: Urinary Tract Infection. - Prescriptions for Cipro 500 mg/5 mL Oral Suspension, Microcapsule Recon - take 5 milliliter by ORAL route every 12 hours for 5 days; 60 milliliter. - Medication Reconciliation, Local Pharmacy Hours, Family Work Release form. - Follow up: Emergency Department; When: As needed; Reason: Worsening of conditions. Follow up: Private Physician; When: 2 - 3 days; Reason: Wound/Symptom Recheck, Recheck today's complaints, Continuance of care. - Problem is new. - Symptoms are unchanged. - Notes: YOUR URINE WAS POSITIVE FOR INFECTION TODAY. PLEASE TAKE THE MEDICATION DIRECTED UNTIL IT IS GONE. FOLLOW UP WITH YOUR PRIMARY CARE PROVIDER IN THE NEXT FEW DAYS TO RECHECK YOUR SYMPTOMS. Historical: - Allergies: Amoxicillin; Codeine Sulfate; SULFA (SULFONAMIDES); - Home Meds: 1. none - PMHx: Asthma; environmental allergies; - PSHx: none; - Social history: Smoking status: Patient states former smoker of tobacco. No barriers to communication noted, The patient speaks fluent Bengali. - Family history: Not pertinent. - : The pt / caregiver states he / she is not on anticoagulants. Home medication list is obtained from the patient, Funding Options import data. - Exposure Risk Screening:: None identified. 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 11 in. (149.86 cm) (R); Pain 5/10; 14:46 BP 116 / 86; Pulse 66; Resp 18; Temp 97.8; Pulse Ox 98% ; ms18 12:05 Body Mass Index 38.37 (86.18 kg, 149.86 cm) gr2 MDM: 14:01 UCG by Nursing ordered. dt4 14:01 Urine Dip ordered. dt4 14:01 Strep Screen, Nursing ordered. dt4 14:16 GATS (NEGATIVE STREP SCREEN) Ordered. EDMS 14:24 Urine Culture Ordered. EDMS 14:46 Financial registration complete. [email or web address] 14:48 [facility] Payment Agreement was scanned into [employer] and attached to record. 05/30 14:20 T-Sheet-- Draft Copy was scanned into [employer] and attached to record. gb Point of Care Testing: Urine : 05/29 14:16 hCG Reading: Negative; Control Reading: Positive; ms18 Urine Dip: 14:16 pH: 6; ; Specific [place]: 1.020; Ketones: Negative; Glucose: Negative; Protein: ms18 Negative; Leukocytes: Positive (+); Nitrite: Positive (+) ; Blood: Negative; Bilirubin: Negative ; Urobilinogen: Normal Ranges: Signatures: Dispatcher Med[employer] Ana March RN RN [facility] Arianna Banda, Reg Reg gb Gillian Almaguer PA-C PA-C dt4 Radha Jacobson RN RN [id number] Nroy Evangelista, Reg Reg [email or web address] The chart was reviewed and I authenticate all verbal orders and agree with the evaluation and treatment provided.Attachments: 14:48 [facility] Payment Agreement 05/30 14:20 T-Sheet-- Draft Copy gb Chart Complete MTDD
== END 2016-05-29 14:48 | disposition home or self-care (01) ==
LOC: M ED 12:03
DX: N39.0 Urinary tract infection, site not specified (principal); K59.00 Constipation, unspecified; J45.909 Unspecified asthma, uncomplicated; Z87.891 Personal history of nicotine dependence; Z88.0 Allergy status to penicillin; Z88.2 Allergy status to sulfonamides; Z88.5 Allergy status to narcotic agent

== ENCOUNTER 2016-06-08 11:27 | Emergency (ER) | payer OTHER ==
[~2016-06-08] VITALS: Ht 149.9 cm; Wt 87.1 kg
[2016-06-08] MEDS ORDERED: ACETAMINOPHEN 325 MG TAB PO ONE (14:00)
[2016-06-08] MEDS ORDERED: ONDANSETRON 4 MG ORAL DISINTEGRATING TAB (S0181) PO ONE (14:00)
[2016-06-08] MEDS ORDERED: ACETAMINOPHEN 325 MG/10.15 ML UDC PO ONE (14:15)
[2016-06-08] MEDS ORDERED: ACETAMINOPHEN SUSP 160 MG/5 ML UDC As Ordered ONE (14:18)
[2016-06-08 14:49] LABS: BASO % 0.4 % (0.0-1.0); EOS # 0.2 K/mm3 (0.0-0.50); EOS % 3.1 % (0.0-3.0); LARGE UNSTAINED CELL # 0.2 K/mm3 (0.0-0.4); LARGE UNSTAINED CELL % 2.9 % (0.0-4.0); LYMPH # 1.9 K/mm3 (1.5-6.5); LYMPH % 33.5 % (24.0-44.0); MEAN CORPUSCULAR HEMOGLOBIN 29.9 pg (27.0-33.0); MEAN CORPUSCULAR HGB CONC 33.4 g/dl (32.0-36.5); MEAN CORPUSCULAR VOLUME 89.5 fl (80.0-96.0); MONO # 0.3 K/mm3 (0.0-0.8); MONO % 5.4 % (0.0-5.0); NEUTROPHILS # 3.2 K/mm3 (1.8-7.7); NEUTROPHILS % 54.6 % (36.0-66.0); PLATELET COUNT, AUTOMATED 269 k/mm3 (150-450); RED CELL DISTRIBUTION WIDTH 12.1 % (11.5-14.5); WHITE BLOOD COUNT 5.8 K/mm3 (4.0-10.0)
[2016-06-08 15:04] LABS: ALBUMIN 3.8 GM/DL (3.2-5.2); ALBUMIN/GLOBULIN RATIO 1.09 (1.00-1.93); ALKALINE PHOSPHATASE 108 U/L (45-117); ALT/SGPT 26 U/L (12-78); ANION GAP 7 MEQ/L (8-16); AST/SGOT 19 U/L (15-37); BILIRUBIN,DIRECT 0.1 MG/DL (0.0-0.2); BILIRUBIN,TOTAL 0.4 MG/DL (0.2-1.0); BLOOD UREA NITROGEN 13 MG/DL (7-18); CALCIUM LEVEL 9.4 MG/DL (8.5-10.1); CARBON DIOXIDE LEVEL 29 MEQ/L (21-32); CHLORIDE LEVEL 107 MEQ/L (98-107); CREATININE FOR GFR 0.71 MG/DL (0.55-1.02); GLUCOSE, FASTING 86 MG/DL (70-105); POTASSIUM SERUM 4.3 MEQ/L (3.5-5.1); SODIUM LEVEL 143 MEQ/L (136-145); TOTAL PROTEIN 7.3 GM/DL (6.4-8.2)
[2016-06-08] MEDS ORDERED: ZOFR4TAB3 PO (15:51)
[2016-06-08 15:56] VITALS: BP 116/84
== END 2016-06-08 16:05 | disposition home or self-care (01) ==
LOC: M ED 12:49
DX: R10.84 Generalized abdominal pain (principal); R11.2 Nausea with vomiting, unspecified; R19.7 Diarrhea, unspecified; Z88.0 Allergy status to penicillin; Z88.2 Allergy status to sulfonamides; Z88.5 Allergy status to narcotic agent

== ENCOUNTER → 2016-06-13 | Outpatient (REF) | payer OTHER ==
[~2016-06-13] MED LIST: ZOFR4TAB3 PO
== END ==
LOC: M LAB REF 12:03
PROVIDERS: ATTEND Physician Assistant
DX: R35.0 Frequency of micturition (principal)

== ENCOUNTER 2016-07-02 13:10 | Emergency (ER) | payer OTHER ==
[~2016-07-02] VITALS: Ht 149.9 cm; Wt 86.2 kg
[2016-07-02] MEDS ORDERED: [UNRECOGNIZED DRUG - OTHER] (13:24)
[2016-07-02 15:35] VITALS: BP 124/76
--- NOTE | 2016-07-02 15:41 | REP ---
LEFT TIBIA AND FIBULA, FOUR VIEWS: HISTORY: Knee pain. There is no acute fracture or dislocation. The joint spaces are normal in appearance. IMPRESSION: There is no acute fracture or dislocation. Signed by Kirk Donohue MD 07/02/2016 03:52 P
== END 2016-07-02 16:02 | disposition home or self-care (01) ==
LOC: M ED 14:38
DX: S93.402A Sprain of unspecified ligament of left ankle, initial encounter (principal); W10.9XXA Fall (on) (from) unspecified stairs and steps, initial encounter; Y92.89 Other specified places as the place of occurrence of the external cause; Y93.01 Activity, walking, marching and hiking; Y99.8 Other external cause status; J45.909 Unspecified asthma, uncomplicated; Z88.1 Allergy status to other antibiotic agents; Z88.2 Allergy status to sulfonamides; Z88.5 Allergy status to narcotic agent

== ENCOUNTER 2016-08-28 15:54 | Emergency (ER) | payer OTHER ==
[~2016-08-28] VITALS: Ht 149.9 cm; Wt 86.6 kg
[~2016-08-28 15:54] MED LIST changes: +[UNRECOGNIZED DRUG - OTHER]
[2016-08-28] MEDS ORDERED: ALBU17IN INH (16:04)
[2016-08-28] MEDS ORDERED: FLON1SPR (16:04)
[2016-08-28] MEDS ORDERED: SING5CHW23 PO (16:04)
[2016-08-28] MEDS ORDERED: ONDANSETRON 4 MG ORAL DISINTEGRATING TAB (S0181) PO ONE (17:45)
[2016-08-28 18:19] LABS: BASO % 0.4 % (0.0-1.0); EOS # 0.2 K/mm3 (0.0-0.50); EOS % 2.2 % (0.0-3.0); LARGE UNSTAINED CELL # 0.1 K/mm3 (0.0-0.4); LARGE UNSTAINED CELL % 1.2 % (0.0-4.0); LYMPH # 2.1 K/mm3 (1.5-6.5); LYMPH % 31.4 % (24.0-44.0); MEAN CORPUSCULAR HEMOGLOBIN 30.1 pg (27.0-33.0); MEAN CORPUSCULAR HGB CONC 33.5 g/dl (32.0-36.5); MONO # 0.4 K/mm3 (0.0-0.8); MONO % 6.5 % (0.0-5.0); NEUTROPHILS % 58.3 % (36.0-66.0); PLATELET COUNT, AUTOMATED 289 k/mm3 (150-450); RED CELL DISTRIBUTION WIDTH 11.9 % (11.5-14.5); WHITE BLOOD COUNT 6.8 K/mm3 (4.0-10.0)
[2016-08-28 18:28] LABS: CONTROL LINE HCG INT CTR LINE PRESENT
[2016-08-28 18:37] LABS: ALBUMIN 3.7 GM/DL (3.2-5.2); ALBUMIN/GLOBULIN RATIO 0.95 (1.00-1.93); ALKALINE PHOSPHATASE 108 U/L (45-117); ALT/SGPT 21 U/L (12-78); ANION GAP 6 MEQ/L (8-16); AST/SGOT 13 U/L (15-37); BILIRUBIN,DIRECT 0.1 MG/DL (0.0-0.2); BILIRUBIN,TOTAL 0.5 MG/DL (0.2-1.0); BLOOD UREA NITROGEN 11 MG/DL (7-18); CALCIUM LEVEL 9.3 MG/DL (8.5-10.1); CARBON DIOXIDE LEVEL 30 MEQ/L (21-32); CHLORIDE LEVEL 106 MEQ/L (98-107); CREATININE FOR GFR 0.71 MG/DL (0.55-1.02); GLUCOSE, FASTING 83 MG/DL (70-105); POTASSIUM SERUM 4.4 MEQ/L (3.5-5.1); SODIUM LEVEL 142 MEQ/L (136-145); TOTAL PROTEIN 7.6 GM/DL (6.4-8.2)
[2016-08-28] MEDS ORDERED: PYRI200T5 PO (18:44)
[2016-08-28] MEDS ORDERED: CIPR500T89 PO (18:44)
[2016-08-28 18:58] VITALS: BP 132/81
== END 2016-08-28 19:06 | disposition home or self-care (01) ==
LOC: M ED 16:06
DX: O99.89 Other specified diseases and conditions complicating pregnancy, childbirth and the puerperium (principal); J06.9 Acute upper respiratory infection, unspecified; J45.909 Unspecified asthma, uncomplicated; Z87.891 Personal history of nicotine dependence; Z88.0 Allergy status to penicillin; Z88.2 Allergy status to sulfonamides; Z88.5 Allergy status to narcotic agent

== ENCOUNTER 2016-10-30 17:00 | Emergency (ER) | payer OTHER ==
[~2016-10-30] VITALS: Ht 149.9 cm; Wt 90.5 kg
[2016-10-30 17:00] VITALS: BP 121/76
[~2016-10-30 17:00] MED LIST changes: +ALBU17IN INH; +CIPR-249 PO; +FLON1SPR; +PYRI1TAB5 PO; +SING5CHW23 PO
[2016-10-30] MEDS ORDERED: IBUPROFEN 600 MG TAB PO ONE (18:00)
--- NOTE | 2016-10-30 18:08 | REP ---
CT of the brain without IV contrast: There are no comparisons. There is no subdural or epidural hematoma. There is no intraparenchymal hemorrhage. Ventricles are normal size and midline. There is no edema, mass effect or midline shift. Cortical stripe is unremarkable. The visualized paranasal sinuses and mastoid air cells are clear. Impression: Negative CT study of the brain. Signed by Marcus Emanuel MD 10/30/2016 06:00 P
--- NOTE | 2016-10-30 18:12 | REP ---
CT of the cervical spine: Axial images are acquired helical scanning in the reformatted sagittal and coronal projections: Skull base, C1 and C2 are unremarkable. Vertebral body heights, interspacing alignment are normal. The facets are normally aligned. The prevertebral soft tissues are normal. There is no posterior element fracture. Impression: There is no fracture or listhesis. Signed by Marcus Emanuel MD 10/30/2016 06:04 P
[2016-10-30] MEDS ORDERED: IBUP-1022 PO (18:17)
[2016-10-30] MEDS ORDERED: CYCL10TA PO (18:17)
== END 2016-10-30 18:24 | disposition home or self-care (01) ==
LOC: M ED 17:00
DX: S13.4XXA Sprain of ligaments of cervical spine, initial encounter (principal); V43.52XA Car driver injured in collision with other type car in traffic accident, initial encounter; Y92.410 Unspecified street and highway as the place of occurrence of the external cause; Y93.9 Activity, unspecified; Y99.9 Unspecified external cause status; Z87.891 Personal history of nicotine dependence; Z88.0 Allergy status to penicillin; Z88.5 Allergy status to narcotic agent; Z88.2 Allergy status to sulfonamides

== ENCOUNTER → 2016-11-09 | Outpatient (REF) | payer OTHER ==
[~2016-11-09] MED LIST changes: +CYCL10TA PO; +IBUP-1022 PO
== END ==
LOC: M LAB REF 16:20
PROVIDERS: ATTEND Physician Assistant
DX: R30.0 Dysuria (principal); R11.0 Nausea

== ENCOUNTER 2016-11-19 11:02 | Emergency (ER) | payer OTHER ==
[~2016-11-19] VITALS: Ht 149.9 cm; Wt 88.4 kg
[2016-11-19 15:41] VITALS: BP 125/87
== END 2016-11-19 15:43 | disposition home or self-care (01) ==
LOC: M ED 11:02
DX: R10.2 Pelvic and perineal pain (principal); T76.21XA Adult sexual abuse, suspected, initial encounter; Y92.099 Unspecified place in other non-institutional residence as the place of occurrence of the external cause; Y93.89 Activity, other specified; Z88.0 Allergy status to penicillin; Z88.5 Allergy status to narcotic agent; Z88.2 Allergy status to sulfonamides

== ENCOUNTER 2017-03-01 12:46 | Emergency (ER) | payer OTHER ==
[~2017-03-01] VITALS: Ht 149.9 cm; Wt 91.5 kg
[2017-03-01 12:50] VITALS: BP 131/77
[2017-03-01] MEDS ORDERED: RANI150T PO (12:54)
[2017-03-01] MEDS ORDERED: FLUO10TA2 PO (12:54)
[2017-03-01] MEDS ORDERED: MELA3TAB PO (12:54)
== END 2017-03-01 15:04 | disposition left against medical advice (07) ==
LOC: M ED 12:46
DX: Z53.21 Procedure and treatment not carried out due to patient leaving prior to being seen by health care provider (principal)

== ENCOUNTER → 2017-04-06 | Outpatient (REF) | payer OTHER | LOC: M LAB REF 20:48 | DX: R30.0 Dysuria (principal) | CPT/HCPCS: 87086 ==